=== PATIENT | female | born 1940 | race Caucasian/White ===

== ENCOUNTER 2017-12-16 12:56 | Emergency (ER) | payer OTHER, MEDICARE ==
[~2017-12-16] VITALS: Ht 149.9 cm; Wt 70.3 kg
[~2017-12-16 12:56] MED LIST: ACYCLOVIR 400400 MG PO; ALLEGRA180 MG PO; AMITRIPTYLINE H10 M1 PO; ATENOLOL 25 MG25 M1 PO; BUDESONIDE EC3 MG PO; CENTRUM TABLET1 EACH PO; CHLORPHENIRAMINE4 M4 PO; CHLORTHALIDONE25 MG PO; CITRATE OF MAG296 ML PO; DEMADEX20 MG PO; DILAUDID 2 MG TA2 MG PO; DILAUDID2 M1 PO; FAMOTIDINE 40 M40 M1 PO; FENTANYL PA12 MCG/HR TP; FLECAINIDE ACE100 MG PO; HYDROCODON-ACE1 EAC1 PO; ISRADIPINE5 MG PO; K-DUR10 ME1 PO; LABETALOL HCL300 MG PO; LASIX 40 MG TAB40 M1 PO; LOVASTAT20 PO; MAGNES; MIRALAX17 GM PO; NEURONTIN 300300 M1 PO; NEURONTIN600 MG PO; NORCO 7.5-3251 EACH PO; NORCO PO; NORFLEX100 MG PO; ORPHENADRINE C100 M2 PO; OXYBUTYNIN 5 MG5 M1 PO; PERCOCET 5-3251 EACH PO; POTASSIUM; PREDNISONE 1 MG1 M1 PO; PREDNISONE 20 M20 M1 PO; PREDNISONE 5 MG5 M1 PO; PREDNISONE PO; SYNTHROID75 MCG PO; TRANDATE 200 M200 M1 PO; VITAMIN D; WATER PILL; [UNRECOGNIZED DRUG - OTHER] PO; [UNRECOGNIZED DRUG - REMARK]
== END 2017-12-16 15:11 | disposition home or self-care (01) ==
LOC: ER 12:56
DX: S61.412A Laceration without foreign body of left hand, initial encounter (principal); M25.562 Pain in left knee; M25.561 Pain in right knee; R51 Headache; W19.XXXA Unspecified fall, initial encounter; Y93.89 Activity, other specified; Y92.89 Other specified places as the place of occurrence of the external cause; Y99.8 Other external cause status; I10 Essential (primary) hypertension; I48.91 Unspecified atrial fibrillation; M19.90 Unspecified osteoarthritis, unspecified site; K21.9 Gastro-esophageal reflux disease without esophagitis; G47.30 Sleep apnea, unspecified; Z88.1 Allergy status to other antibiotic agents; Z88.0 Allergy status to penicillin; Z88.2 Allergy status to sulfonamides; Z88.8 Allergy status to other drugs, medicaments and biological substances

== ENCOUNTER → 2019-08-23 | Outpatient (CLI) | payer OTHER, MEDICARE | LOC: SJCVCIMAG 10:12 | DX: M79.604 Pain in right leg (principal); M79.605 Pain in left leg; R60.0 Localized edema ==

== ENCOUNTER → 2019-12-18 | Outpatient (CLI) | payer OTHER, MEDICARE | LOC: SJCVC 11:27 | PROVIDERS: ATTEND Internal Medicine Cardiovascular Disease | DX: I44.0 Atrioventricular block, first degree (principal); R94.31 Abnormal electrocardiogram [ECG] [EKG]; I48.0 Paroxysmal atrial fibrillation; I25.10 Atherosclerotic heart disease of native coronary artery without angina pectoris; I87.2 Venous insufficiency (chronic) (peripheral); I10 Essential (primary) hypertension; E78.00 Pure hypercholesterolemia, unspecified; I36.1 Nonrheumatic tricuspid (valve) insufficiency; I34.0 Nonrheumatic mitral (valve) insufficiency; E11.9 Type 2 diabetes mellitus without complications; M19.90 Unspecified osteoarthritis, unspecified site; Z82.49 Family history of ischemic heart disease and other diseases of the circulatory system; Z79.899 Other long term (current) drug therapy ==

== ENCOUNTER → 2020-04-07 | Outpatient (CLI) | payer OTHER, MEDICARE | LOC: LAB 11:29 | PROVIDERS: ATTEND Internal Medicine | DX: Z01.812 Encounter for preprocedural laboratory examination (principal); Z20.828 Contact with and (suspected) exposure to other viral communicable diseases ==

== ENCOUNTER → 2020-04-18 | Outpatient (CLI) | payer OTHER, MEDICARE ==
--- NOTE | 2020-05-05 18:36 | MCT ---
[facility] [place] [address] METHACHOLINE CHALLENGE TEST Name: BRENNAN ESPINOZA Room #: [facility] Chaya#: [id number] Admission: 04/18/20 Attend Phys: John Ovalle MD Discharge: Date of : 36 Report #: [id number] THIS REPORT FOR: //name// COPIES FOR: AGE: 80 SEX/RACE: F/C Height: 58 in Exam Date: 04/18/20 Weight: 150 lbs BTPS: X >> PRE BRONCHODILATOR: PREDICTED BEST %PRED FORCED VITAL CAPACITY (FRC) 1.85 L LPM % FORCED EXP VOL/SEC (FEV1) 1.18 L FEV/FVC % MAX MID-EXP FLOW (FEF 25-75) 1.57 L/SEC L/SEC % PEAK EXP FLOW RATE (FEF MAX) 4.43 L/MIN L/MIN MED-VC RATIO (FEF 50/FEF 50) .09 Baseline: Phenol Saline Level 1: 0.025 mg/ml BEST %PRED %CHANGE BEST %PRED %CHANGE FVC 1.25 L 68 % % FVC 1.31 L 71 % 5 % FEV1 0.83 L 70 % % FEV1 0.84 L 71 % 2 % Level 2: 0.25 mg/ml Level 3: 2.5 mg/ml BEST %PRED %CHANGE BEST %PRED %CHANGE FVC 1.28 L 69 % 3 % FVC 1.17 L 63 % -7 % FEV1 0.84 L 71 % 1 % FEV1 0.80 L 68 % -3 % . Level 4: 10 mg/ml Level 5: 25 mg/ml BEST %PRED %CHANGE BEST %PRED %CHANGE FVC L % % FVC L % % FEV1 L % % FEV1 L % % Post Bronchodilator: 1st Treatment Post Bronchodilator: 2nd Treatment BEST %PRED %CHANGE BEST %PRED %CHANGE FVC 1.20 L 65 % -4 % FVC L % % FEV1 0.76 L 64 % -9 % FEV1 L % % Post Bronchodilator: 3rd Treatment BEST %PRED %CHANGE [facility] [address] [place] [address] METHACHOLINE CHALLENGE TEST Name: JANAK ESPINOZARAFA Richard Room #: REG [facility]#: [id number] Admission: 04/18/20 Attend Phys: John Ovalle MD Discharge: Date of : 36 Report #: [id number] FVC L % % FEV1 L % % >> COMMENTS: Patient begun to wheeze after administertion of level 3 and was able to do the three loops. I administered the level 4 medication and the patient slumped in the chair and began to audibly wheeze and her saturation was 85%. I gave a dose of ALbuterol and gave her a minute to try and recover. I asked her to do a loop when her saturation recovered and there was a 39% decrease in was 11% and then 4% bringing the patient back to baseline. Spoke with Dr.Strom clarke testing to appise him of the patient difficulty. >> INTERPRETATION: CC: Homer Ovalle MD DATE OF SERVICE: 04/24/2020 METHACHOLINE CHALLENGE TEST Pre-MCT spirometry shows mildly decreased flows. At the third level MCT concentration, the patient's flow was relatively unchanged. Post-MCT spirometry was near baseline. Comments from the respiratory therapist state that the test was stopped due to drop in oxygenation to 85%. IMPRESSION: Inconclusive methacholine challenge test. Test was not able to be completed due to drop in oxygenation. Clinical correlation is recommended. <ELECTRONICALLY SIGNED> By: Javid Merino MD 05/05/20 1836 Javid Merino MD /nt
== END ==
LOC: CAT 10:02 → PUL 10:02
PROVIDERS: ATTEND Internal Medicine
DX: I25.10 Atherosclerotic heart disease of native coronary artery without angina pectoris (principal); J98.4 Other disorders of lung

== ENCOUNTER → 2020-09-16 | Outpatient (CLI) | payer OTHER, MEDICARE | LOC: SJCVCIMAG 10:50 → SJCVC 10:50 | PROVIDERS: ATTEND Internal Medicine Cardiovascular Disease | DX: N28.1 Cyst of kidney, acquired (principal); R94.31 Abnormal electrocardiogram [ECG] [EKG]; I10 Essential (primary) hypertension; I25.10 Atherosclerotic heart disease of native coronary artery without angina pectoris; I48.0 Paroxysmal atrial fibrillation; I34.0 Nonrheumatic mitral (valve) insufficiency; I36.1 Nonrheumatic tricuspid (valve) insufficiency; E78.00 Pure hypercholesterolemia, unspecified; E11.9 Type 2 diabetes mellitus without complications; R79.89 Other specified abnormal findings of blood chemistry; M19.90 Unspecified osteoarthritis, unspecified site; Z79.899 Other long term (current) drug therapy; Z82.49 Family history of ischemic heart disease and other diseases of the circulatory system; Z87.891 Personal history of nicotine dependence ==

== ENCOUNTER → 2020-11-11 | Outpatient (CLI) | payer OTHER, MEDICARE | LOC: SJCVC 12:49 | PROVIDERS: ATTEND Nuclear Medicine Nuclear Cardiology | DX: I48.0 Paroxysmal atrial fibrillation (principal); I25.10 Atherosclerotic heart disease of native coronary artery without angina pectoris; E78.00 Pure hypercholesterolemia, unspecified; I10 Essential (primary) hypertension; E11.9 Type 2 diabetes mellitus without complications; J98.4 Other disorders of lung; I70.1 Atherosclerosis of renal artery; G47.30 Sleep apnea, unspecified; I87.2 Venous insufficiency (chronic) (peripheral); R06.00 Dyspnea, unspecified; M70.70 Other bursitis of hip, unspecified hip; K52.89 Other specified noninfective gastroenteritis and colitis; I65.29 Occlusion and stenosis of unspecified carotid artery; N30.80 Other cystitis without hematuria; K57.92 Diverticulitis of intestine, part unspecified, without perforation or abscess without bleeding; M79.7 Fibromyalgia; E06.3 Autoimmune thyroiditis; R60.0 Localized edema; D47.09 Other mast cell neoplasms of uncertain behavior; I08.1 Rheumatic disorders of both mitral and tricuspid valves; M19.90 Unspecified osteoarthritis, unspecified site; I47.1 Supraventricular tachycardia; N19 Unspecified kidney failure; J44.9 Chronic obstructive pulmonary disease, unspecified; Z87.891 Personal history of nicotine dependence; Z79.899 Other long term (current) drug therapy; Z82.49 Family history of ischemic heart disease and other diseases of the circulatory system; Z88.8 Allergy status to other drugs, medicaments and biological substances; Z88.6 Allergy status to analgesic agent ==

== ENCOUNTER 2020-11-15 11:52 | Emergency (ER) | payer OTHER, MEDICARE ==
[~2020-11-15] VITALS: Ht 147.3 cm; Wt 69.8 kg
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
[2020-11-15 12:54] LABS: ABSOLUTE NEUTROPHILS 10.1 thou/uL (1.4-8.2); BASOPHILS 0.7 % (0.0-2.0); EOSINOPHILS 0.6 % (0.0-3.0); HEMATOCRIT 28.7 % (37.0-47.0); HEMOGLOBIN 9.4 gm/dL (12.0-15.0); LYMPHOCYTES 6.7 % (24.0-44.0); MCH 31.4 pg (26.0-34.0); MCHC 32.6 g/dL (28.0-37.0); MCV 96.3 fL (80.0-100.0); MONOCYTES 5.4 % (1.0-8.0); PLATELET COUNT 200 thou/uL (150-400); POLYS 86.6 % (36.0-66.0); RBC 2.98 mil/uL (4.20-5.00); RDW 14.8 % (10.5-14.5); WBC 11.6 thou/uL (4.0-11.0)
[2020-11-15 12:58] LABS: ANION GAP 10 mmol/L (7-16); BUN 29 mg/dL (7-18); CALCIUM 8.9 mg/dL (8.5-10.1); CHLORIDE 107 mmol/L (98-107); CO2 25 mmol/L (21-32); CREATININE 1.5 mg/dL (0.6-1.0); GLUCOSE 172 mg/dL (74-106); POTASSIUM 4.5 mmol/L (3.5-5.1); SODIUM 142 mmol/L (136-145)
[2020-11-15 13:09] LABS: ALBUMIN 3.4 g/dL (3.4-5.0); SGOT 17 U/L (15-37); SGPT 18 U/L (30-65); TOTAL BILIRUBIN 0.4 mg/dL (0.2-1.0); TOTAL PROTEIN 6.9 g/dL (6.4-8.2); TROPONIN-I <0.06 ng/mL (<0.06)
[2020-11-15] MEDS ORDERED: ONDANSETRON HCL4 M2 PO (17:43)
[2020-11-15] MEDS ORDERED: NORCO5 PO (17:43)
[2020-11-15 18:08] VITALS: BP 154/49
== END 2020-11-15 18:09 | disposition home or self-care (01) ==
LOC: ER 11:52
PROVIDERS: Physician Assistant
DX: S01.112A Laceration without foreign body of left eyelid and periocular area, initial encounter (principal); S01.511A Laceration without foreign body of lip, initial encounter; S20.211A Contusion of right front wall of thorax, initial encounter; S40.021A Contusion of right upper arm, initial encounter; S80.12XA Contusion of left lower leg, initial encounter; I10 Essential (primary) hypertension; I48.91 Unspecified atrial fibrillation; K21.9 Gastro-esophageal reflux disease without esophagitis; M54.2 Cervicalgia; Z87.891 Personal history of nicotine dependence; Z88.7 Allergy status to serum and vaccine; Z91.040 Latex allergy status; Z88.0 Allergy status to penicillin; Z88.2 Allergy status to sulfonamides; Z88.8 Allergy status to other drugs, medicaments and biological substances; Z79.899 Other long term (current) drug therapy; V49.59XA Passenger injured in collision with other motor vehicles in traffic accident, initial encounter; Y93.89 Activity, other specified; Y92.413 State road as the place of occurrence of the external cause; Y99.9 Unspecified external cause status

== ENCOUNTER → 2020-12-12 | Outpatient (CLI) | payer OTHER, MEDICARE ==
[~2020-12-12] VITALS: Ht 147.3 cm; Wt 65.8 kg
[~2020-12-12] MED LIST changes: +DOXEPIN 10 MG C10 M1 PO; +FLONASE 0.05%50 MCG NARES; +NORCO5 PO; +ONDANSETRON HCL4 M2 PO; +PIOGLITAZONE15 MG; +VOLTAREN ARTHRI20 GM TOP
[2020-12-12 10:17] VITALS: BP 145/55
--- NOTE | 2020-12-12 10:19 | NUR ---
Pain Clinic Assessment: 1. History of Osteoarthritis: HANDS HIPS KNEES HIPS BACK History of Rheumatoid Arthritis: Not Applicable 2. Height: 4 ft. 10 in. 147.3 cm. Weight: 145.0 lb. oz. 65.772 kg. Patient's BMI: 30.3 3. Vital Signs: BP: 145/55 Pulse: 67 Resp: 16 Temp: 02 Sat: 99 ECG Mon: 4. Pain Intensity: 10 5. Fall Risk: Dizziness: N Needs help standing or walking: N Fallen in the last 3 months: N Fall risk comments: 6. Patient on Blood Thinner: None 7. History of Hypertension: Y 8. Opioid Therapy greater than 6 weeks: N Opiate Contract Signed: 9. Risk Assessment Tool Provided: LOW-0 10. Functional Assessment Tool: 56/70 11. Recreational Drug Use: Never Drug Type: Tobacco Use: Former Smoker Tobacco Type: Amount or Packs/day: How Many Years: Alcohol Use: No Frequency: Quant:
== END ==
LOC: PAIN 07:02
PROVIDERS: ATTEND Anesthesiology Pain Medicine
DX: M54.5 Low back pain (principal); D47.09 Other mast cell neoplasms of uncertain behavior; D89.89 Other specified disorders involving the immune mechanism, not elsewhere classified; L40.50 Arthropathic psoriasis, unspecified; N30.10 Interstitial cystitis (chronic) without hematuria; H35.30 Unspecified macular degeneration; I10 Essential (primary) hypertension; M19.90 Unspecified osteoarthritis, unspecified site; E06.3 Autoimmune thyroiditis; G47.30 Sleep apnea, unspecified; K21.9 Gastro-esophageal reflux disease without esophagitis; F41.9 Anxiety disorder, unspecified; Z79.899 Other long term (current) drug therapy; Z79.891 Long term (current) use of opiate analgesic; Z98.1 Arthrodesis status; V89.2XXD Person injured in unspecified motor-vehicle accident, traffic, subsequent encounter

== ENCOUNTER → 2021-01-07 | Outpatient (CLI) | payer OTHER, MEDICARE ==
[~2021-01-07] VITALS: Ht 147.3 cm; Wt 69.4 kg
[~2021-01-07] MED LIST changes: +ALBUTEROL2.5 MG/31 INH; +HYDROCODON-ACE1 EAC7 PO; +LOVASTATIN 20 M20 MG PO; +NORVASC10 MG PO; +PROAIR HFA8.5 GM INH; +TYLENOL325 MG PO
[2021-01-07 07:15] VITALS: BP 182/56
[2021-01-07 07:38] LABS: HEMATOCRIT 31.8 % (37.0-47.0); HEMOGLOBIN 10.2 gm/dL (12.0-15.0); MCH 31.4 pg (26.0-34.0); MCHC 31.9 g/dL (28.0-37.0); MCV 98.3 fL (80.0-100.0); RBC 3.24 mil/uL (4.20-5.00); RDW 14.5 % (10.5-14.5); WBC 6.6 thou/uL (4.0-11.0)
[2021-01-07 07:48] LABS: CALCIUM 9.3 mg/dL (8.5-10.1); CREATININE 2.3 mg/dL (0.6-1.0); POTASSIUM 3.9 mmol/L (3.5-5.1)
[2021-01-07 08:54] VITALS: BP 182/56
--- NOTE | 2021-01-08 16:10 | CATHLAB ---
[facility] [place] [address] INVASIVE PROCEDURE REPORT Name: BRENNAN ESPINOZA Room #: REG JANIS Esquivel.#: [id number] Admission: 01/07/21 Attend Phys: Yogi Nelson MD Discharge: Date of : 36 Report #: [id number] THIS REPORT FOR: cc: Homer Zurita MD, Stanley P. MD Mancuso, Gerald M. MD [facility] ~ APPROVED REPORT Study performed: 01/07/2021 09:12:56 Patient Details Patient Status: Out-Patient Room #: The patient is a 80 year-old female Event Personnel Everardo Ketn Unit Reactor Operator, Ken Chawla RTR Monitor, Ada Meyer RN RN, Radha Limon RT(R)() Scrub, Janeen Kelly RTR Scrub Procedures Performed Art Access - R femoral artery* Duy Access - R femoral vein Right and Left Heart Cath w/or w/o Coronarie [id number] [facility] 82578 Initial Mod Sed Same Phys/QHP Gr5y [id number] 08712 Mod Sed Same Phys/QHP Ea [id number] Hemostasis w/ Mynx Hemostasis with Manual pressure Indication Chest pain Procedure Narrative The was infiltrated with 1% Lidocaine subcutaneous anesthesia. A SHEATH BRITE-TIP 6F X 11CM ([id number]) sheath was inserted into the RFA^. Coronary angiography was performed using coronary diagnostic catheters. The right coronary system was accessed and visualized with a JR4 catheter. The left coronary system was accessed and visualized with a JL4 catheter. The left ventricle was accessed and visualized with a PIGTAIL catheter. Left ventricular/Aortic Valve gradient assessed via catheter pullback. Closure device was deployed with a 6 Fr MYNXGRIP 6/7F #[id number]. Hemostasis was obtained with manual pressure following sheath removal without any complications. The patient tolerated the procedure well and there were no complications associated with the procedure. There was no hematoma. A 7Fr Brite Tip sheath was inserted into the RFV. A Bahama-Morena catheter was inserted and right heart pressures were obtained. This was a combination case with Dr. Nelson performing a renal angiogram prior to heart [address] [address] INVASIVE PROCEDURE REPORT Name: BRENNAN ESPINOZA Room #: REG [facility]#: [id number] Admission: 01/07/21 Attend Phys: Yogi Nelson, Discharge: Date of : 36 Report #: [id number] catheterization. Contrast and radiation doses reflect both cases. Intraoperative Conscious Sedation Sedation start time: 833 Case end Time: 1003 Fentanyl 25 mcg Versed 0.5 mg Fluoro Time: 6.63 minutes Dose: DAP 7800.40 cGycm2 478 mGy Contrast Type and Amount: Visipaque 34 ml Hemodynamics The right atrial mean pressure is 11 mmHg. The right ventricular pressure is 48/3 mmHg. The pulmonary artery pressure is 52/23 mmHg with a mean of 36 mmHg. The mean pulmonary capillary wedge pressure is 34 mmHg. The aortic pressure is 190/64 mmHg with a mean of 115 mmHg. The left ventricular pressure is 180/6 mmHg with a mean of mmHg. The left ventricular end diastolic pressure is 17 mmHg. Pullback from the left ventricle to the aorta revealed a mm gradient across the aortic valve. The cardiac output using thermo method is 4.45 L/min. The cardiac index using thermo method is 2.81 L/min/m2. Conclusion #1 Successful right heart catheterization with cardiac output by thermodilution. #2 LV gram was performed with hemodynamics only. #3 left main large mildly disease giving rise to LAD and circumflex. #4 LAD with mild irregularity 3040% mid vessel extends to the apex. No occlusive disease. #5 circumflex OM nondominant but moderate distribution no occlusive disease. #6 smaller caliber right coronary artery with a small PDA somewhat of a codominant system. No occlusive disease Recommendations plan: Continue aggressive risk factor modification will need diuresis. Limited contrast utilized due to chronic kidney disease. <ELECTRONICALLY SIGNED> By: Everardo Kent MD, FACC 01/08/219 08 08 Everardo Kent MD, FACC /INF
== END | disposition home or self-care (01) ==
LOC: CATH 07:45
PROVIDERS: ATTEND Nuclear Medicine Nuclear Cardiology
DX: R07.9 Chest pain, unspecified (principal); I25.10 Atherosclerotic heart disease of native coronary artery without angina pectoris; I70.1 Atherosclerosis of renal artery; N28.9 Disorder of kidney and ureter, unspecified; I73.9 Peripheral vascular disease, unspecified; I11.0 Hypertensive heart disease with heart failure; I50.9 Heart failure, unspecified; I48.0 Paroxysmal atrial fibrillation; E11.9 Type 2 diabetes mellitus without complications; E78.5 Hyperlipidemia, unspecified; K21.9 Gastro-esophageal reflux disease without esophagitis; M79.7 Fibromyalgia; Z98.890 Other specified postprocedural states; Z79.899 Other long term (current) drug therapy; Z90.49 Acquired absence of other specified parts of digestive tract; Z90.710 Acquired absence of both cervix and uterus; Z79.01 Long term (current) use of anticoagulants; Z96.652 Presence of left artificial knee joint

== ENCOUNTER → 2021-04-16 | Outpatient (CLI) | payer OTHER, MEDICARE | LOC: SJCVC 10:20 | PROVIDERS: ATTEND Internal Medicine Cardiovascular Disease | DX: R94.31 Abnormal electrocardiogram [ECG] [EKG] (principal); I25.10 Atherosclerotic heart disease of native coronary artery without angina pectoris; I10 Essential (primary) hypertension; E78.00 Pure hypercholesterolemia, unspecified; I36.1 Nonrheumatic tricuspid (valve) insufficiency; I34.0 Nonrheumatic mitral (valve) insufficiency; I87.2 Venous insufficiency (chronic) (peripheral); E11.9 Type 2 diabetes mellitus without complications; G47.30 Sleep apnea, unspecified; I42.9 Cardiomyopathy, unspecified; M70.70 Other bursitis of hip, unspecified hip; K52.9 Noninfective gastroenteritis and colitis, unspecified; I11.0 Hypertensive heart disease with heart failure; I50.9 Heart failure, unspecified; K57.92 Diverticulitis of intestine, part unspecified, without perforation or abscess without bleeding; M79.7 Fibromyalgia; E06.3 Autoimmune thyroiditis; D47.09 Other mast cell neoplasms of uncertain behavior; M19.90 Unspecified osteoarthritis, unspecified site; I48.0 Paroxysmal atrial fibrillation; N19 Unspecified kidney failure; Z87.891 Personal history of nicotine dependence; Z79.899 Other long term (current) drug therapy; Z82.49 Family history of ischemic heart disease and other diseases of the circulatory system; Z88.5 Allergy status to narcotic agent; Z88.6 Allergy status to analgesic agent; Z88.8 Allergy status to other drugs, medicaments and biological substances; Z88.2 Allergy status to sulfonamides ==